=== PATIENT | female | born 1960 | race Caucasian/White ===

== ENCOUNTER → 2016-11-01 | Outpatient (CLI) | payer BC ==
--- NOTE | 2016-11-03 19:07 | Diagnostic Imaging Report ---
Bilateral screening mammogram The current study was also evaluated with a Computer Aided Detection (CAD) system. Indication: Screening. No current complaints stated on the questionnaire. COMPARISON: 08/25/15. FINDINGS: The breasts are composed of heterogeneously dense parenchyma which may decrease mammographic sensitivity. There is no mass, architectural distortion or suspicious cluster of calcifications seen. An intramammary lymph node is seen in the upper outer aspect of the left breast. Allowing for technique and positional differences, no suspicious change is seen. IMPRESSION: Dense breasts with no definite change. ACR BI-RADS Category 2: Benign findings. Result letter will be mailed to the patient. Note: At least 10% of breast cancer is not imaged by mammography. Dictated by: Dictated on workstation # [id number]
== END ==
LOC: RAD 14:50
PROVIDERS: ATTEND Nurse Practitioner
DX: Z12.31 Encounter for screening mammogram for malignant neoplasm of breast (principal)
CPT/HCPCS: 77067

== ENCOUNTER 2017-04-18 05:43 | Outpatient (CLI) | payer BC ==
[~2017-04-18] VITALS: Ht 160 cm; Wt 52.2 kg
== END 2017-04-18 11:00 ==
LOC: PREOP 05:43
PROVIDERS: ATTEND Internal Medicine
DX: Z01.818 Encounter for other preprocedural examination (principal); Z86.010 Personal history of colon polyps; Z80.0 Family history of malignant neoplasm of digestive organs

== ENCOUNTER 2017-04-21 08:27 | Day surgery (SDC) | payer BC ==
--- NOTE | 2017-04-14 08:12 | HISTORY AND PHYSICAL ---
DATE OF ADMISSION: 04/21/2017 DICTATING PHYSICIAN: Dr. Bran Ms. Lepe is a 56-year-old white female referred for surveillance colonoscopy due to a past history of colon polyps and a positive family history for colon cancer. Her mother was diagnosed with colon cancer in her 40s. Magdalena last underwent colonoscopy 3 years ago in March 2014 at which time a 1 cm tubular adenoma was removed from the splenic flexure. She is here for surveillance colonoscopy. She reports no changes in her health history. She reports no bright red blood per rectum or melena. She has had no significant problems with abdominal pain and denies any change in bowel habit. Her weight has been stable and she feels well. PAST MEDICAL HISTORY: Noncontributory. MEDICATIONS: She takes no medication. PAST SURGICAL HISTORY: She has no significant past surgical history. FAMILY HISTORY: Other than her mother's colon cancer, she has one brother 67 years of age with a history of colon polyps and one brother at the age of 31, who of Hodgkin's disease. 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 PHYSICAL EXAMINATION: Reveals a normal weight white female, appears to be in no acute distress. Weight is up 3.2 pounds from 3 years ago at 119. Blood pressure 110/70, heart rate 72 and regular. She is a Mallampati class I oropharyngeal configuration. Pharynx reveals no erythema or exudate. NECK: Reveals no JVD, adenopathy or bruits. CHEST: Clear. CV: Reveals regular rate and rhythm without murmur, S3 or S4. ABDOMEN: Soft, supple without mass, organomegaly or tenderness. EXTREMITIES: Reveal no cyanosis, clubbing, or edema. ASSESSMENT: The patient was set-up for surveillance colonoscopy due to a positive family history in a first degree relative with early colon cancer. The index case being her mother diagnosed in her early 40s. She also has a past history of adenomatous colonic polyps, one removed from the splenic flexure 3 years ago. Prep instructions with the Ortiz-prep kit were given and questions were answered. Electronic medical record was reviewed. 40 minutes my care time was spent with another 15 minutes of staff time. I thank you for the referral of this pleasant lady. Sincerely, Job ID: [id number] Dictated Date: 04/12/2017 20:25:00 Immigration Specialist Date: 04/13/2017 09:10:32/yvettek MTDD
[~2017-04-21] VITALS: Ht 160 cm; Wt 52.2 kg
[2017-04-21] MEDS ORDERED: 1/2 NS IV SOLUTION 1,000 ML IV ONE ×2 (08:36→08:45)
[2017-04-21 08:40] VITALS: BP 128/85
[2017-04-21] MEDS ORDERED: LIDOCAINE JELLY 2% (XYLOCAINE) 5 ML TUBE MM PRN (08:45)
[2017-04-21] MEDS ORDERED: fentaNYL INJECTION 100 MCG/2 ML AMP ONE ×2 (09:32→09:53)
[2017-04-21] MEDS ORDERED: MIDAZOLAM 2 MG/2 ML (VERSED) VIAL ONE ×3 (09:32→09:55)
[2017-04-21] MEDS ORDERED: LIDOCAINE JELLY 2% (XYLOCAINE) 5 ML TUBE ONE (09:33)
--- NOTE | 2017-04-21 09:41 | Pre-Op Note & Conscious Sedat ---
Pre-Operative Progress Note H&P Reviewed The H&P was reviewed, patient examined and no changes noted. Date H&P Reviewed: Apr 21, 2017 Time H&P Reviewed: 08:30 Conscious Sedation Pre-Proced ASA Class: 1 Airway Mallampati Classification: ([place] appropriate class) I. II. III, IV Lungs Heart ASA score ASA 1: a normal healthy patient ASA 2: a patient with a mild systemic disease (mid diabetes, controlled hypertension, obesity ASA 3: a patient with a severe systemic disease that limits activity (angina , COPD, prior Myocardial infarction) ASA 4: a patient with an incapacitating disease that is a constant threat to life (CHF, renal failure) ASA 5: a moribund patient not expected to survive 24 hrs. (ruptured aneurysm) ASA 6: a declared brain patient whose organs are being harvested. For emergent operations, add the letter E after the classification Grade 2 Sedation Plan: Analgesia, Amnesia, Plan communicated to team members, Discussed options with patient/fam, Discussed risks with patient/fam Note The patient is an appropriate candidate to undergo the planned procedure, sedation, and anesthesia. The patient immediately re-assessed prior to indication. PETEY MCPHERSON MD Apr 21, 2017 09:40
[2017-04-21] MEDS: fentaNYL INJECTION 100 MCG/2 ML AMP IVP PRN ×3 (09:45→09:55)
[2017-04-21] MEDS: MIDAZOLAM 2 MG/2 ML (VERSED) VIAL IVP PRN ×3 (09:46→10:01)
[2017-04-21 10:40] VITALS: BP 108/70
[2017-04-21 11:00] VITALS: BP 83/55
[2017-04-21 11:05] VITALS: BP 83/55
--- NOTE | 2017-04-21 11:44 | OPERATIVE REPORT ---
PROCEDURE PHYSICIAN: PETEY MCPHERSON DATE OF PROCEDURE: 04/21/2017 COLONOSCOPY SUMMARY: PRIMARY CARE PROVIDER: Dr. Castillo Surveillance colonoscopy due to a past history of polyps and a family history for early colon cancer. In this case being her mother who was diagnosed with colon cancer around the age of 40. The patient was placed in left lateral decubitus position. Digital rectal evaluation was performed. Anal sphincter tone was normal and the perianal reflex was intact. No abnormalities were noted to digital inspection of the anal canal or distal rectal vault. The colonoscope was then inserted into the rectum and under direct visualization, advanced to the cecum. The cecum was identified by identification of the ileocecal valve and cecal strap. Photographic documentation was obtained. Careful inspection was made as the colonoscope was withdrawn. FINDINGS: There was no evidence for internal or external hemorrhoids. The rectum and sigmoid colon were unremarkable. Present at the splenic flexure was a diminutive 2 mm sessile polyp versus prominent lymphoid follicle. It was biopsied and ablated, and submitted for histopathology. The transverse colon, hepatic flexure, ascending colon and cecum were unremarkable. ASSESSMENT: One questionable diminutive polyp versus prominent lymphoid follicle was removed from the splenic flexure via hot forceps. There was no subsequent blood loss. This was an otherwise unremarkable colonoscopy to the cecum. Pending histopathology report, as long as there are no surprises, will be recommending a 3 to 5 year surveillance colonoscopy interval predominately due to family history. I thank you for the referral of this pleasant lady. Sincerely, Job ID: [id number] Dictated Date: 04/21/2017 11:03:31 Java Flex Developer Date: 04/21/2017 11:39:44 / errol
== END 2017-04-21 11:05 | disposition home or self-care (01) ==
LOC: ENDO 08:27
PROVIDERS: ATTEND Internal Medicine
DX: Z12.11 Encounter for screening for malignant neoplasm of colon (principal); K63.9 Disease of intestine, unspecified; Z86.010 Personal history of colon polyps; Z80.0 Family history of malignant neoplasm of digestive organs
CPT/HCPCS: 88305

== ENCOUNTER → 2019-02-04 | Outpatient (CLI) | payer BC ==
--- NOTE | 2019-02-04 11:22 | Diagnostic Imaging Report ---
INDICATION: Routine screening. COMPARISON: 01/23/2018 and 11/01/2016. TECHNIQUE: 2D and 3D bilateral screening mammography was performed with CAD. FINDINGS: Both breasts remain heterogeneously dense, limiting the sensitivity of mammography. Intraparenchymal lymph nodes in the outer left breast appear stable. There are benign calcifications in both breasts. No mass or malignant appearing microcalcifications are seen. The axillae are unremarkable. IMPRESSION: No mammographic features suspicious for malignancy are identified. ACR BI-RADS Category 2: Benign findings. Result letter will be mailed to the patient. Note: At least 10% of breast cancer is not imaged by mammography. Dictated by: Dictated on workstation # [id number]
== END ==
LOC: RAD 09:45
PROVIDERS: ATTEND Nurse Practitioner
DX: Z12.31 Encounter for screening mammogram for malignant neoplasm of breast (principal)
CPT/HCPCS: 77067

== ENCOUNTER → 2020-08-06 | Outpatient (CLI) | payer BC ==
--- NOTE | 2020-08-06 17:11 | Diagnostic Imaging Report ---
INDICATION: Routine screening. COMPARISON is made with prior mammograms 02/04/2019 and 01/23/2018. 2-D and 3-D bilateral screening mammography was performed with CAD. Both breasts remain heterogeneously dense, limiting the sensitivity of mammography. Intraparenchymal lymph node outer left breast is stable. There are benign calcifications in both breasts. No spiculated mass or malignant appearing microcalcifications are seen. Axillae are unremarkable. IMPRESSION: BI-RADS Category 2. No mammographic features suspicious for malignancy are identified. ACR BI-RADS Category 2: Benign findings. Result letter will be mailed to the patient. Note: At least 10% of breast cancer is not imaged by mammography. Dictated by: Dictated on workstation # [id number]
== END ==
LOC: RAD 11:20
PROVIDERS: ATTEND Nurse Practitioner
DX: Z12.31 Encounter for screening mammogram for malignant neoplasm of breast (principal)
CPT/HCPCS: 77063; 77067

== ENCOUNTER 2021-04-07 05:42 | Outpatient (CLI) | payer BC ==
[~2021-04-07] VITALS: Ht 162.6 cm; Wt 49.5 kg
== END 2021-04-12 11:10 | disposition home or self-care (01) ==
LOC: PREOP 05:42
PROVIDERS: ATTEND Internal Medicine
DX: Z01.818 Encounter for other preprocedural examination (principal)

== ENCOUNTER 2021-04-13 07:03 | Day surgery (SDC) | payer BC ==
--- NOTE | 2021-04-07 06:12 | HISTORY AND PHYSICAL ---
DATE OF SERVICE: DATE OF ADMISSION: 04/13/2021 REFERRING PHYSICIAN: Ten Castillo MD. HISTORY OF PRESENT ILLNESS: The patient is a 60-year-old white female referred for surveillance colonoscopy. She has a distant past history of adenomatous colonic polyps and there is a family history for colon cancer, index case being her mother, who was diagnosed with colon cancer around the age of 40. She reports no other relatives that she is aware of with colon cancer. She has noted no bowel habit change. Denies change in weight, abdominal pain, melena or bright red blood per rectum. PAST MEDICAL HISTORY: Unremarkable. The patient takes no medication. PAST SURGICAL HISTORY: The patient reports no past surgeries. FAMILY HISTORY: As noted above. 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 REVIEW OF SYSTEMS: CONSTITUTIONAL: The patient is fully vaccinated for COVID with no reported night sweats, chills, fever or change in weight. GASTROINTESTINAL: As noted in the HPI. CARDIOVASCULAR: The patient denies shortness of breath, chest pain, orthopnea, PND, pedal edema or syncope. PULMONARY: The patient denies cough, wheezing or dyspnea on exertion. PHYSICAL EXAMINATION: GENERAL: Reveals a pleasant, thin white female, appears to be in no acute distress. HEENT: Unremarkable. CHEST: Clear. CARDIOVASCULAR: Reveals a regular rate and rhythm without murmur, S3 or S4. ABDOMEN: Soft, supple without mass, organomegaly or tenderness. EXTREMITIES: Reveal no cyanosis, clubbing or edema. ASSESSMENT AND PLAN: The patient is set up for surveillance colonoscopy due to a past history of adenomatous colonic polyps and a family history of colon cancer, index case being her mother diagnosed around the age of 40. Prep instructions with Suprep kit were given and questions were answered. I thank you for the referral of this pleasant lady. Job ID: [id number] DocumentID: [id number] Dictated Date: 04/06/2021 20:44:47 Metal Punch Press Operator Date: 04/06/2021 21:07:41 Dictated By: PETEY MCPHERSON MD
[~2021-04-13] VITALS: Ht 162.6 cm; Wt 49.5 kg
[2021-04-13] MEDS ORDERED: LACTATED RINGERS 1,000 ML IV ONE (07:12)
--- NOTE | 2021-04-13 07:24 | Pre-Op Note & Conscious Sedat ---
Pre-Operative Progress Note H&P Reviewed The H&P was reviewed, patient examined and no changes noted. Date H&P Reviewed: Apr 13, 2021 Time H&P Reviewed: 07:10 Conscious Sedation Pre-Proced ASA Score 1 For ASA 3 and 4: Consider anesthesia and medical clearance. Also, for patients with a history of failed moderate sedation consider anesthesia. Airway Lungs Heart ASA score ASA 1: a normal healthy patient ASA 2: a patient with a mild systemic disease (mid diabetes, controlled hypertension, obesity ASA 3: a patient with a severe systemic disease that limits activity (angina, COPD, prior Myocardial infarction) ASA 4: a patient with an incapacitating disease that is a constant threat to life (CHF, renal failure) ASA 5: a moribund patient not expected to survive 24 hrs. (ruptured aneurysm) ASA 6: a declared brain- patient whose organs are being harvested. For emergent operations, add the letter E after the classification Mallampati Classification Grade 2 Sedation Plan Analgesia, Amnesia, Plan communicated to team members, Discussed options with patient/fam, Discussed risks with patient/fam The patient is an appropriate candidate to undergo the planned procedure, sedation, and anesthesia. The patient immediately re-assessed prior to indication. PETEY MCPHERSON MD Apr 13, 2021 07:24
[2021-04-13] MEDS ORDERED: LACTATED RINGERS 1,000 ML IV STA (07:27)
[2021-04-13] MEDS ORDERED: proPOfol 200 MG/20 ML (DIPRIVAN) VIAL IV ONE (07:28)
[2021-04-13] MEDS ORDERED: LIDOCAINE JELLY 2% 6 ML SYRINGE MM PRN (07:30)
[2021-04-13 07:32] VITALS: BP 113/74
[2021-04-13] MEDS ORDERED: LIDOCAINE JELLY 2% 6 ML SYRINGE ONE (07:38)
[2021-04-13] MEDS ORDERED: SIMETHICONE 40 MG/0.6 ML (MYLICON DROPS) 30 ML BTL ONE (07:49)
[2021-04-13] MEDS ORDERED: SIMETHICONE 40 MG/0.6 ML (MYLICON DROPS) 30 ML BTL PO PRN (08:00)
[2021-04-13 08:05] VITALS: BP 88/53
[2021-04-13 08:10] VITALS: BP 95/57
[2021-04-13 08:15] VITALS: BP 104/68
[2021-04-13 08:20] VITALS: BP 126/70
[2021-04-13 08:43] VITALS: BP 104/68
--- NOTE | 2021-04-13 13:42 | Anesthesia-General Post-Op ---
MAC Patient Condition Mental Status/LOC: Same as Preop Cardiovascular: Satisfactory Nausea/Vomiting: Absent Respiratory: Satisfactory Pain: Controlled Complications: Absent Post Op Complications Complications None Follow Up Care/Instructions Patient Instructions None needed. Anesthesiology Discharge Order Discharge Order Patient is doing well, no complaints, stable vital signs, no apparent adverse anesthesia problems. No complications reported per nursing. REBEKAH NGO CRNA Apr 13, 2021 13:42
--- NOTE | 2021-04-13 20:21 | OPERATIVE REPORT ---
DATE OF SERVICE: COLONOSCOPY SUMMARY INDICATION FOR THE PROCEDURE: Screening colonoscopy. The patient was placed in the left lateral decubitus position. Prior to undergoing colonoscopy, digital rectal evaluation was performed. Anal sphincter tone was normal and the perianal reflexes intact. No abnormalities were noted on digital inspection of anal canal or distal rectal vault. The colonoscope was then inserted into the rectum and under direct visualization advanced to cecum. The cecum was identified by identification of ileocecal valve and cecal strap. Graphic documentation was obtained. A careful inspection was made as the colonoscope withdrawn. Quality of prep was good. FINDINGS: There was no evidence for internal or external hemorrhoids and the rectum, sigmoid colon, descending colon, splenic flexure, transverse colon, hepatic flexure, ascending colon and cecum were unremarkable. ASSESSMENT: Normal colonoscopy to the cecum. Considering family history mother diagnosed with colon cancer in her mid to late 40s and advocate repeat surveillance colonoscopy in 3 to 5 years. I thank you for the referral of this pleasant lady. Job ID: [id number] DocumentID: [id number] Dictated Date: 04/13/2021 14:45:35 Photograph Enlarger Date: 04/13/2021 20:19:53 Dictated By: PETEY MCPHERSON MD
== END 2021-04-13 08:55 | disposition home or self-care (01) ==
LOC: ENDO 07:03
PROVIDERS: ATTEND Internal Medicine
DX: Z12.11 Encounter for screening for malignant neoplasm of colon (principal); Z80.0 Family history of malignant neoplasm of digestive organs; Z86.010 Personal history of colon polyps

== ENCOUNTER → 2021-08-27 | Outpatient (CLI) | payer BC ==
--- NOTE | 2021-08-27 12:08 | Diagnostic Imaging Report ---
INDICATION: Routine screening. COMPARISON is made with prior mammograms 08/06/2020 and 02/04/2019. 2-D and 3-D bilateral screening mammography was performed with CAD. Both breasts are heterogeneously dense, limiting the sensitivity of mammography. Benign nodules in the upper outer left breast are stable. There are benign calcifications present. No spiculated mass or malignant-appearing microcalcifications are seen. Axillae are unremarkable. IMPRESSION: BI-RADS Category 2 No mammographic features suspicious for malignancy are identified. ACR BI-RADS Category 2: Benign findings. Result letter will be mailed to the patient. Note: At least 10% of breast cancer is not imaged by mammography. Dictated by: Dictated on workstation # [id number]
== END ==
LOC: RAD 10:30
PROVIDERS: ATTEND Surgery
DX: Z12.31 Encounter for screening mammogram for malignant neoplasm of breast (principal)
CPT/HCPCS: 77063; 77067

== ENCOUNTER → 2023-01-04 | Outpatient (CLI) | payer BC ==
--- NOTE | 2023-01-04 17:13 | Diagnostic Imaging Report ---
INDICATION: 3D bilateral screening mammogram. EXAMINATION: Bilateral digital screening mammogram with CAD. 3D tomographic images were obtained and reviewed. The current study was also evaluated with a Computer Aided Detection (CAD) system. COMPARISON: This study was compared to the prior exams of 08/27/2021 and 08/06/2020. At this time there are no current complaints. FINDINGS: The fibroglandular tissue in both breasts is heterogeneously dense. This does limit the sensitivity of this exam. When compared to the previous study there does not appear to have been any significant change. There is no primary or secondary sign of malignancy noted. IMPRESSION: There is no evidence for malignancy. ACR BI-RADS Category 1: Negative. Result letter will be mailed to the patient. Note: At least 10% of breast cancer is not imaged by mammography. Dictated by: Dictated on workstation # [id number]
== END ==
LOC: RAD 13:30
PROVIDERS: ATTEND Family Medicine
DX: Z12.31 Encounter for screening mammogram for malignant neoplasm of breast (principal)
CPT/HCPCS: 77063; 77067